=== PATIENT | male | born 1980 | race African-American/Black ===

== ENCOUNTER 2023-10-26 16:54 | Emergency (ER) | payer OTHER, SELFPAY ==
[2023-10-26 17:00] VITALS: BP 148/86
--- NOTE | 2023-10-26 18:13 | CM ---
Addendum entered by Calista Geller 10/26/23 18:24:
Correct address for the emergency usp is:
[address] [place] [address]
Original Note:
CM consulted. Chart reviewed. CM introduced self and role. Patient stated that he would like to go to a usp. He wanted to go to the usp in [place]. CM explained that this particular usp was closed. He was agreeable to having a Lyft
ride set up to transport him to the usp in [place].
Patient bedside RN and attending physician made aware. Address to usp also provided.
Address to [facility]:
[address] [place] [address].
Patient shared that he hope the [facility] can help him with a ride to transport back to [facility]. He shared that he is originally from [facility].
--- NOTE | 2023-10-26 22:12 | ED.SKININJ ---
HPI-Injury
General
Chief Complaint: Skin Surface Trauma
Source: patient
Exam Limitations: none
Time Seen by Provider: 10/26/23 17:43
Nursing documentation reviewed up to this point in time: agreed with
History of Present Illness-Injury
Is this injury a work related problem?: No
Is pt an associate of [facility]/[place]?: No
Initial Injury comments:
Patient to ED for eval of blisters on plantar surface of bilateral feet. He states he has been doing a lot of walking. Notes mild low back pain. Also reports he is currently homeless.
Past History
Past History
ED Past Medical History: None
ED Past Surgical History: None
Review of Systems
Review of Systems
Allergies reviewed?: Yes
All Other Systems: ROS reviewed and negative except as documented in HPI and ROS
ABD/GI: Reports no symptoms
: Reports no symptoms
Musculoskeletal: Reports back pain
Skin: Reports other (blister on bilateral plantar surfaces. Blisters are intact.)
Neurological: Reports no symptoms
Psychiatric: Reports no symptoms
Skin Exam
other
Other:
3cm blister on plantar surface of left foot below toes. Blister is intact, no s/s infection. Neurovascularly intact. 1cm blister on plantar surfaceof right foot below toes. No s/s infection, neurovascularly intact. Blislter is intact.
Phy Exam
General Physical Exam
General Presentation: well appearing and no apparent distress
General age: appears stated age
General Skin: warm and dry
General Habitus: normal
General Mental: alert
Cardiovascular Exam
Cardiovascular Exam: regular rate/rhythm
Gastrointestinal Exam
Gastrointestinal Exam: non tender and soft
Musculoskeletal Exam
Musculoskeletal Exam: full ROM and neuro vasc intact
Skin Exam
Skin Exam: normal color, warm/dry and no rash
Psychiatric Exam
Psychiatric Exam: normal mood/affect
Course
Orders/Labs/Results
Orders:
Orders
10/26/23 17:04
Case Management Consult ONCE
Case Management Consult: Discharge Planning
Requested By:: NURSING
Comment: Homeless
Vital Signs
Initial and Last Documented VS:
Initial Vital Signs
Temp Pulse Resp BP Pulse Ox
98.1 F 88 18 148/86 99
10/26/23 17:00 10/26/23 17:00 10/26/23 17:00 10/26/23 17:00 10/26/23 17:00
Last Documented Vital Signs
Temp Pulse Resp BP Pulse Ox
98.1 F 68 18 148/86 99
10/26/23 17:00 10/26/23 19:57 10/26/23 19:57 10/26/23 17:00 10/26/23 19:57
*Critical Care Note
Total Time (30-74mins, 75-104mins- exclusive of procedures): Not Applicable
Update Note
Update Note:
Patient seen by case management. Case management has secured a room for him at [facility]. I have asked them to secure transportation for him and was told that case management would provide. He is discharged from ED. Given
instructions on blister care.
ED Attending Note
-
Portions of this chart may have been created with voice recognition software.� Occasional wrong word or��sound alike� substitutions may have occurred due to the inherent limitations of voice recognition software.
Discharge Plan
Departure
Patient Disposition: Home (Routine Discharge)
Date of Disposition: 10/26/23
Time of Disposition: 18:56
Patient with high blood pressure during this ER visit?: No
Condition: Good
Covid-19: Not Applicable
Discharge Problem:
Blister of foot
Instructions: Blisters
Referrals:
UNKNOWN - PT DOES,NOT KNOW [Family Provider] -
Activity Restrictions/Additional Instructions:
Follow up with your healthcare provider this week.
Interventions
Interventions:
*Risk Screen - Suicide Last Done: 10/26/23 18:20
*General Assessment Last Done: 10/26/23 18:20
*Neglect/Abuse Screening Last Done: 10/26/23 18:20
ED- Fall Risk Assessment Last Done: 10/26/23 19:57
*ED COVID-19 Vaccine History Last Done: 10/26/23 19:57
*Nursing Disposition Last Done: 10/26/23 19:57
ED-Skin Assessment Last Done: 10/26/23 18:20
Discharge Date and Time
Discharge Date/Time: 10/26/23 19:50
Print Language: TURKISH
Musculoskeletal Injury Exam
Musculoskeletal Injury Exam
Bilateral Lower Back:
Pain with Movement?: Mild
Tender to palpation?: None
Soft tissue swelling?: None
External deformity and angulation?: None
Joint effusion?: None
Contusion?: None
Hematoma-local bleeding into tissue?: None
Strain- Sprain- Tear (Connective tissue injury)?: Mild
Crepitus with movement?: No
Joint instability?: No
Malalignment/deformity?: No
Range of motion: Full
Distal skin color and temperature: normal-warm & good color
Capillary Refill: normal
Normal distal neurovascular exam?: Yes
== END 2023-10-26 19:50 | disposition home or self-care (01) ==
LOC: EMR 16:54
PROVIDERS: EMERGENCY PHYSICIAN Emergency Medicine
DX: S90.822A Blister (nonthermal), left foot, initial encounter (principal); S90.821A Blister (nonthermal), right foot, initial encounter; X58.XXXA Exposure to other specified factors, initial encounter; M54.50 Low back pain, unspecified; Z59.00 Homelessness unspecified
CPT/HCPCS: 99282